=== PATIENT | male | born 1990 | race Caucasian/White ===

== ENCOUNTER 2018-12-27 13:46 | Inpatient (IN) ==
[2018-12-27 15:05] LABS: Basophils % 0.7 %; Eosinophils # 0.2 K/mcL (0.0-0.6); Eosinophils % 3.9 %; Hematocrit 35.4 % (37.5-50.1); Immature Granulocytes % 0.2 % (0-4); Lymphocytes # 2.2 K/mcL (0.6-4.6); Lymphocytes % 40.6 %; Mean Corpuscular HGB Conc 36.7 g/dL (31.6-35.5); Mean Corpuscular Hemoglobin 35.1 pg (28.0-33.3); Mean Corpuscular Volume 95.7 fL (83.0-100.0); Mean Platelet Volume 11.3 fL (9.4-12.4); Monocytes # 0.5 K/mcL (0.0-1.3); Monocytes % 8.5 %; Neutrophils # 2.5 K/mcL (1.6-8.9); Platelet Count 130 K/mcL (140-400); Red Cell Distribution Width 11.3 % (11.5-14.5); Segmented Neutrophils % 46.1 %; White Blood Count 5.4 K/mcL (4.3-11.1)
[2018-12-27 15:09] LABS: Acetaminophen < 10 mcg/mL (10-20); BUN/Creatinine Ratio 14 (6-26); Blood Urea Nitrogen 11 mg/dL (6-20); Calcium 8.9 mg/dL (8.6-10.3); Carbon Dioxide 30 mEq/L (23-29); Chloride 106 mEq/L (98-107); Ethanol < 10 mg/dL (Less than 10); Glucose 96 mg/dL (70-105); Osmolality,Calculated 289 (280-300); Potassium 3.8 mEq/L (3.5-5.1); Salicylate < 2.5 mg/dL (15.0-30.0); Sodium 140 mEq/L (136-145); eGFR For African Americans > 60 (> 60); eGFR For Non-African Americans > 60 (> 60)
[2018-12-27 15:13] LABS: Bilirubin,Urine Negative (Negative); Blood,Urine Negative (Negative); Clarity,Urine Clear (Clear); Color,Urine Yellow (Yellow); Glucose,Urine (UA) Normal (Normal); Ketones,Urine Negative (Negative); Leukocyte Esterase,Urine Negative (Negative); Nitrite,Urine Negative (Negative); Protein,Urine Negative (Neg-Trace); Specific Gravity,Urine 1.018 (1.010-1.025); Urobilinogen,Urine Normal (Normal)
[2018-12-27 15:21] LABS: Amphetamine Screen,Urine Negative ng/mL (Cutoff=1000); Barbiturate Screen,Urine Negative ng/mL (Cutoff=200); Benzodiazepines Screen,Urine Negative ng/mL (Cutoff=200); Cannabinoid Screen,Urine Negative ng/mL (Cutoff = 50); Cocaine Screen,Urine Negative ng/mL (Cutoff= 300); Opiate Screen,Urine Negative ng/mL (Cutoff=300); Phencyclidine Screen,Urine Negative ng/mL (Cutoff=25)
[2018-12-27] MEDS ORDERED: Mag Hydrox/Al Hydrox/Simeth 30 ML UDC PO PRN (16:13)
[2018-12-27] MEDS ORDERED: MOM Conc 10 ML UD.LIQ PO PRN (16:13)
[2018-12-27] MEDS ORDERED: *HR* LORazepam 2 MG/ML VIAL IM PRN (16:13)
[2018-12-27] MEDS ORDERED: Haloperidol Lactate 5 MG/ML VIAL IM PRN (16:13)
[2018-12-27] MEDS: hydrOXYzine pamoate 25 MG CAPSULE PO PRN (21:15)
[2018-12-28] MEDS: *HR* LORazepam 1 MG TABLET PO PRN (11:55)
[2018-12-28 15:45] LABS: Chol/HDL Ratio 3.4 (0-4.9)
[2018-12-28 15:58] LABS: Thyroid Stimulating Hormone 3.554 mcIU/mL (0.340-5.600)
[2018-12-28 16:39] LABS: Estimated Average Glucose 97 mg/dl
[2018-12-28] MEDS: ARIPiprazole 5 MG TABLET PO SCH (20:25)
[2018-12-28] MEDS: hydrOXYzine pamoate 25 MG CAPSULE PO PRN (20:26)
[2018-12-29] MEDS: Acetaminophen 325 MG TABLET PO PRN (09:30)
[2018-12-29] MEDS: *HR* LORazepam 1 MG TABLET PO PRN (12:01)
[2018-12-29] MEDS: ARIPiprazole 5 MG TABLET PO SCH (20:50)
[2018-12-30] MEDS: hydrOXYzine pamoate 25 MG CAPSULE PO PRN ×2 (09:23→20:12)
[2018-12-30] MEDS: *HR* LORazepam 1 MG TABLET PO PRN (10:17)
[2018-12-30] MEDS: ARIPiprazole 5 MG TABLET PO SCH (20:12)
[2018-12-31] MEDS: *HR* LORazepam 1 MG TABLET PO PRN (09:11)
[2018-12-31] MEDS: hydrOXYzine pamoate 25 MG CAPSULE PO PRN (20:43)
[2018-12-31] MEDS: ARIPiprazole 10 MG TABLET PO SCH (20:43)
[2019-01-01] MEDS: *HR* LORazepam 1 MG TABLET PO PRN (12:11)
[2019-01-01] MEDS: ARIPiprazole 10 MG TABLET PO SCH (21:11)
[2019-01-01] MEDS: hydrOXYzine pamoate 25 MG CAPSULE PO PRN (21:11)
[2019-01-02] MEDS: Acetaminophen 325 MG TABLET PO PRN (12:34)
[2019-01-02] MEDS: *HR* LORazepam 1 MG TABLET PO PRN (14:52)
[2019-01-02] MEDS: ARIPiprazole 5 MG TABLET PO SCH (21:33)
[2019-01-02] MEDS: hydrOXYzine pamoate 25 MG CAPSULE PO PRN (21:33)
[2019-01-02] MEDS: ARIPiprazole 10 MG TABLET PO SCH (21:34)
[2019-01-03] MEDS ORDERED: (Aripiprazole [Abilify Maintena] 400 MG) IM SCH (09:00)
[2019-01-03] MEDS: Acetaminophen 325 MG TABLET PO PRN (17:21)
[2019-01-03] MEDS: ARIPiprazole 5 MG TABLET PO SCH (20:48)
[2019-01-03] MEDS: hydrOXYzine pamoate 25 MG CAPSULE PO PRN (20:48)
[2019-01-03] MEDS: ARIPiprazole 10 MG TABLET PO SCH (20:48)
[2019-01-04] MEDS: ARIPiprazole 10 MG TABLET PO SCH (20:36)
[2019-01-04] MEDS: ARIPiprazole 5 MG TABLET PO SCH (20:36)
[2019-01-05] MEDS: hydrOXYzine pamoate 25 MG CAPSULE PO PRN (11:50)
[2019-01-05] MEDS: ARIPiprazole 10 MG TABLET PO SCH (21:01)
[2019-01-05] MEDS: ARIPiprazole 5 MG TABLET PO SCH (21:01)
[2019-01-06] MEDS: ARIPiprazole 5 MG TABLET PO SCH (20:54)
[2019-01-06] MEDS: ARIPiprazole 10 MG TABLET PO SCH (20:55)
[2019-01-07 09:28] VITALS: BP 133/85
== END 2019-01-07 15:35 | disposition home or self-care (01) | DRG 750 ==
LOC: EMEROOARM 13:46 → 1ANU 16:08 → SUATTDRO 16:08 → 1ANU 16:10
PROVIDERS: ADMIT Psychiatry & Neurology Psychiatry; ATTEND Psychiatry & Neurology Psychiatry